=== PATIENT | male | born 1945 | race Caucasian/White ===

== ENCOUNTER 2017-03-20 13:21 | Emergency (ER) | payer OTHER ==
[~2017-03-20] VITALS: Ht 175.3 cm; Wt 108.9 kg
[~2017-03-20 13:21] MED LIST: ALDACTONE25 MG; BENAZEPRIL HCL/1 TAB; COLACE100 MG; HUMI SQ; LANTUS SOLOS100 U/M1 SQ; LANTUS100 U/ML; LASIX20 MG; METFORMIN500 M1; PRE15; SERTRALINE25 M1
[2017-03-20 13:26] VITALS: BP 100/62
== END 2017-03-20 14:35 | disposition home or self-care (01) ==
LOC: ED 13:21
DX: L03.211 Cellulitis of face (principal); L02.01 Cutaneous abscess of face; I10 Essential (primary) hypertension; E11.9 Type 2 diabetes mellitus without complications; Z88.5 Allergy status to narcotic agent

== ENCOUNTER 2018-07-08 17:47 | Emergency (ER) | payer OTHER ==
[~2018-07-08] VITALS: Ht 175.3 cm; Wt 108.9 kg
[2018-07-08 18:03] VITALS: Ht 175.3 cm; Wt 108.9 kg
[2018-07-08 22:29] VITALS: BP 132/74
== END 2018-07-08 22:29 | disposition home or self-care (01) ==
LOC: ED 17:47
DX: M25.061 Hemarthrosis, right knee (principal); I10 Essential (primary) hypertension; E11.9 Type 2 diabetes mellitus without complications; E78.00 Pure hypercholesterolemia, unspecified; Z98.890 Other specified postprocedural states; Z88.6 Allergy status to analgesic agent; W22.8XXA Striking against or struck by other objects, initial encounter; Y93.89 Activity, other specified; Y92.89 Other specified places as the place of occurrence of the external cause; Y99.8 Other external cause status
CPT/HCPCS: J1885; Q0092

== ENCOUNTER 2018-07-10 18:52 | Emergency (ER) | payer OTHER ==
[~2018-07-10] VITALS: Ht 175.3 cm; Wt 111.1 kg
[2018-07-10 19:03] VITALS: Ht 175.3 cm; Wt 111.1 kg
[2018-07-10 22:46] VITALS: BP 126/75
== END 2018-07-10 22:46 | disposition home or self-care (01) ==
LOC: ED 18:52
DX: S80.01XA Contusion of right knee, initial encounter (principal); K21.9 Gastro-esophageal reflux disease without esophagitis; I10 Essential (primary) hypertension; E78.00 Pure hypercholesterolemia, unspecified; Z88.5 Allergy status to narcotic agent; Z98.890 Other specified postprocedural states; W18.39XA Other fall on same level, initial encounter; Y93.89 Activity, other specified; Y92.89 Other specified places as the place of occurrence of the external cause; Y99.8 Other external cause status
CPT/HCPCS: J1885; Q0092

== ENCOUNTER 2018-07-13 07:18 | Inpatient (IN) | payer OTHER ==
[~2018-07-13] VITALS: Ht 175.3 cm; Wt 132.7 kg
[2018-07-13 08:06] LABS: PLATELET COUNT 85 x10^3mcL (130-400); RED CELL DISTRIBUTION WIDTH 15.2 % (11.5-14.5)
[2018-07-13] MEDS ORDERED: SERTRALINE50 M1 PO (08:10)
[2018-07-13] MEDS ORDERED: LEVEMIR100 U/M1 SC (08:11)
[2018-07-13] MEDS ORDERED: NOVOLOG100 U/ML SC (08:11)
[2018-07-13] MEDS ORDERED: GOOD SENSE OMEP20 MG PO (08:13)
[2018-07-13] MEDS ORDERED: [UNRECOGNIZED DRUG - OTHER] PO (08:13)
[2018-07-13] MEDS ORDERED: ALDACTONE25 MG PO (08:13)
[2018-07-13] MEDS ORDERED: LACTULOSE10 GM/152 PO (08:14)
[2018-07-13] MEDS ORDERED: TRAZODONE50 M1 (08:14)
[2018-07-13] MEDS ORDERED: DETROL LA4 MG PO (08:14)
[2018-07-13] MEDS ORDERED: TRAZODONE50 M1 PO (08:14)
[2018-07-13 08:19] LABS: CALCIUM 8.2 mg/dL (8.5-10.1); CARBON DIOXIDE 17.1 mmol/L (21-32); CHLORIDE SERUM 97 mmol/L (98-107); CREATININE SERUM 3.3 mg/dL (0.7-1.3); GLUCOSE SERUM 88 mg/dL (74-106); POTASSIUM SERUM 3.9 mmol/L (3.5-5.1); SODIUM SERUM 131 mmol/L (136-145)
[2018-07-13 08:29] LABS: ALKALINE PHOSPHATASE 199 U/L (46-116); ALT/SGPT 39 U/L (16-63); AST/SGOT 44 U/L (15-37); TOTAL PROTEIN, SERUM 6.4 g/dL (6.4-8.2)
[2018-07-13 08:31] LABS: CK-MB 1.5 ng/mL (0-3.6)
[2018-07-13 08:32] LABS: FREE T4 1.17 ng/dL (0.76-1.46); T4(THYROXINE) 5.6 ug/dL (4.7-13.3)
[2018-07-13 08:59] LABS: ERYTHROCYTE SED RATE 94 mm/hr (0-20)
[2018-07-13 09:06] LABS: C REACTIVE PROTEIN 37.3 mg/dL (<=0.9)
[2018-07-13 09:11] LABS: T3 TOTAL 0.31 ng/mL
[2018-07-13 09:21] LABS: BAND NEUTROPHIL 15 % (0-10); BASOPHIL 0 % (0-2); MONOCYTE 9 % (0-7); PLATELET MORPHOLOGY GIANT PLATELET SEEN; SEGMENTED NEUTROPHILS 68 % (37-75); rbc morphology (normal/abnorm) ABNORMAL (NORMAL)
[2018-07-13 09:37] LABS: UA SPECIFIC GRAVITY 1.025 (1.005-1.035); microscopic required? YES; urine erythrocyte 3+ (NEGATIVE)
[2018-07-13 11:03] VITALS: BP 101/70
[2018-07-13 16:30] VITALS: BP 87/49
[2018-07-13 19:30] VITALS: BP 126/76
[2018-07-13 23:50] VITALS: BP 96/56
[2018-07-14] VITALS (11 sets, daily range): BP systolic 79–131; BP diastolic 38–77
[2018-07-14 05:27] LABS: PLATELET COUNT 100 x10^3mcL (130-400); RED CELL DISTRIBUTION WIDTH 15.3 % (11.5-14.5)
[2018-07-14 05:41] LABS: BAND NEUTROPHIL 10 % (0-10); METAMYELOCTE 2 % (0-2); MONOCYTE 2 % (0-7); SEGMENTED NEUTROPHILS 84 % (37-75)
[2018-07-14 05:43] LABS: rbc morphology (normal/abnorm) ABNORMAL (NORMAL)
[2018-07-14 05:44] LABS: PLATELET MORPHOLOGY PLATELETS DECREASED; acanthocyte (spur cell) 1+
[2018-07-14 05:45] LABS: CALCIUM 7.9 mg/dL (8.5-10.1); CARBON DIOXIDE 15.7 mmol/L (21-32); CHLORIDE SERUM 98 mmol/L (98-107); GLUCOSE SERUM 193 mg/dL (74-106); MAGNESIUM 1.6 mg/dL (1.8-2.4); POTASSIUM SERUM 4.6 mmol/L (3.5-5.1); SODIUM SERUM 130 mmol/L (136-145)
[2018-07-15] VITALS (16 sets, daily range): BP systolic 81–114; BP diastolic 44–65; Ht 175.3 cm; Wt 132.7 kg
[2018-07-15 05:23] LABS: CALCIUM 7.7 mg/dL (8.5-10.1); CARBON DIOXIDE 19.3 mmol/L (21-32); CHLORIDE SERUM 100 mmol/L (98-107); CREATININE SERUM 3.3 mg/dL (0.7-1.3); GLUCOSE SERUM 250 mg/dL (74-106); MAGNESIUM 2.4 mg/dL (1.8-2.4); POTASSIUM SERUM 4.2 mmol/L (3.5-5.1); SODIUM SERUM 133 mmol/L (136-145)
[2018-07-15 05:24] LABS: PLATELET COUNT 87 x10^3mcL (130-400); RED CELL DISTRIBUTION WIDTH 16.2 % (11.5-14.5)
[2018-07-15 05:25] LABS: BAND NEUTROPHIL 12 % (0-10); METAMYELOCTE 1 % (0-2); MONOCYTE 3 % (0-7); SEGMENTED NEUTROPHILS 82 % (37-75); rbc morphology (normal/abnorm) ABNORMAL (NORMAL)
[2018-07-15 05:26] LABS: PLATELET MORPHOLOGY PLATELETS DECREASED; acanthocyte (spur cell) 1+
[2018-07-16] VITALS (18 sets, daily range): BP systolic 91–145; BP diastolic 50–84
[2018-07-16 05:31] LABS: PLATELET COUNT 80 x10^3mcL (130-400); RED CELL DISTRIBUTION WIDTH 16.3 % (11.5-14.5)
[2018-07-16 05:54] LABS: BAND NEUTROPHIL 6 % (0-10); METAMYELOCTE 1 % (0-2); MONOCYTE 3 % (0-7); SEGMENTED NEUTROPHILS 86 % (37-75)
[2018-07-16 05:55] LABS: acanthocyte (spur cell) 1+; rbc morphology (normal/abnorm) ABNORMAL (NORMAL)
[2018-07-16 05:56] LABS: PLATELET MORPHOLOGY PLATELETS DECREASED
[2018-07-16 06:06] LABS: CALCIUM 7.4 mg/dL (8.5-10.1); CARBON DIOXIDE 20.1 mmol/L (21-32); CHLORIDE SERUM 97 mmol/L (98-107); GLUCOSE SERUM 358 mg/dL (74-106); POTASSIUM SERUM 4.4 mmol/L (3.5-5.1); SODIUM SERUM 129 mmol/L (136-145)
[2018-07-16 06:10] LABS: CREATININE SERUM 4.3 mg/dL (0.7-1.3)
[2018-07-17] VITALS (18 sets, daily range): BP systolic 90–118; BP diastolic 46–68
[2018-07-17 05:31] LABS: PLATELET COUNT 67 x10^3mcL (130-400); RED CELL DISTRIBUTION WIDTH 16.3 % (11.5-14.5)
[2018-07-17 05:32] LABS: BAND NEUTROPHIL 5 % (0-10); METAMYELOCTE 1 % (0-2); MONOCYTE 4 % (0-7); SEGMENTED NEUTROPHILS 88 % (37-75); rbc morphology (normal/abnorm) ABNORMAL (NORMAL)
[2018-07-17 05:33] LABS: PLATELET MORPHOLOGY PLATELETS DECREASED; acanthocyte (spur cell) 1+
[2018-07-17 05:43] LABS: CARBON DIOXIDE 20.9 mmol/L (21-32); CHLORIDE SERUM 98 mmol/L (98-107); CREATININE SERUM 3.9 mg/dL (0.7-1.3); GLUCOSE SERUM 225 mg/dL (74-106); POTASSIUM SERUM 3.6 mmol/L (3.5-5.1); SODIUM SERUM 132 mmol/L (136-145)
[2018-07-18] VITALS (18 sets, daily range): BP systolic 77–163; BP diastolic 42–104
[2018-07-18 06:01] LABS: BASOPHIL % 0.1 % (0-2)
[2018-07-18 06:06] LABS: PLATELET COUNT 70 x10^3mcL (130-400); RED CELL DISTRIBUTION WIDTH 16.5 % (11.5-14.5)
[2018-07-18 06:16] LABS: CALCIUM 7.8 mg/dL (8.5-10.1); CARBON DIOXIDE 20.1 mmol/L (21-32); CHLORIDE SERUM 95 mmol/L (98-107); GLUCOSE SERUM 236 mg/dL (74-106); MAGNESIUM 2.3 mg/dL (1.8-2.4); POTASSIUM SERUM 4.3 mmol/L (3.5-5.1); SODIUM SERUM 129 mmol/L (136-145)
[2018-07-18 06:18] LABS: CREATININE SERUM 5.1 mg/dL (0.7-1.3)
[2018-07-19] VITALS (12 sets, daily range): BP systolic 74–127; BP diastolic 46–65
[2018-07-19 05:24] LABS: CALCIUM 7.7 mg/dL (8.5-10.1); CARBON DIOXIDE 19.5 mmol/L (21-32); CHLORIDE SERUM 97 mmol/L (98-107); GLUCOSE SERUM 256 mg/dL (74-106); MAGNESIUM 2.3 mg/dL (1.8-2.4); PHOSPHOROUS 4.9 mg/dL (2.5-4.9); POTASSIUM SERUM 4.7 mmol/L (3.5-5.1); SODIUM SERUM 131 mmol/L (136-145)
[2018-07-19 05:29] LABS: CREATININE SERUM 4.7 mg/dL (0.7-1.3)
[2018-07-19 05:31] LABS: BASOPHIL % 0 % (0-2); RED CELL DISTRIBUTION WIDTH 16.1 % (11.5-14.5)
[2018-07-19 05:32] LABS: PLATELET COUNT 72 x10^3mcL (130-400)
== END 2018-07-19 19:27 | disposition expired | DRG 870 ==
LOC: ED 07:18 → IC 09:37
PROVIDERS: Family Medicine; Internal Medicine; Specialist; ADMIT Internal Medicine
PROC: 05HM33Z Insertion of Infusion Device into Right Internal Jugular Vein, Percutaneous Approach (ICD-10-PCS; principal; 2018-07-13)
PROC: B543ZZA Ultrasonography of Right Jugular Veins, Guidance (ICD-10-PCS; 2018-07-13)
PROC: 5A1955Z Respiratory Ventilation, Greater than 96 Consecutive Hours (ICD-10-PCS; 2018-07-14)
PROC: 0BH17EZ Insertion of Endotracheal Airway into Trachea, Via Natural or Artificial Opening (ICD-10-PCS; 2018-07-14)
PROC: 05HM33Z Insertion of Infusion Device into Right Internal Jugular Vein, Percutaneous Approach (ICD-10-PCS; 2018-07-16)
PROC: B543ZZA Ultrasonography of Right Jugular Veins, Guidance (ICD-10-PCS; 2018-07-16)
DX: A41.02 Sepsis due to Methicillin resistant Staphylococcus aureus (principal); G82.50 Quadriplegia, unspecified; R65.21 Severe sepsis with septic shock; J96.01 Acute respiratory failure with hypoxia; K76.7 Hepatorenal syndrome; N17.0 Acute kidney failure with tubular necrosis; G93.41 Metabolic encephalopathy; N39.0 Urinary tract infection, site not specified; E44.0 Moderate protein-calorie malnutrition; K70.30 Alcoholic cirrhosis of liver without ascites; N31.9 Neuromuscular dysfunction of bladder, unspecified; E11.21 Type 2 diabetes mellitus with diabetic nephropathy; B96.1 Klebsiella pneumoniae [K. pneumoniae] as the cause of diseases classified elsewhere; F41.8 Other specified anxiety disorders; E83.51 Hypocalcemia; E78.00 Pure hypercholesterolemia, unspecified; I10 Essential (primary) hypertension; Z51.5 Encounter for palliative care; Z79.4 Long term (current) use of insulin; Z68.35 Body mass index [BMI] 35.0-35.9, adult; Z87.891 Personal history of nicotine dependence; Z79.84 Long term (current) use of oral hypoglycemic drugs; Z85.59 Personal history of malignant neoplasm of other urinary tract organ
CPT/HCPCS: 36556; 36600; 76770; 82962; 84439; 87804; 90658; 90732; A4628; C1758; C9113; J0282; J0692; J0696; J1642; J1644; J1650; J1815; J1940; J1956; J2060; J2185; J2250; J2270; J2354; J2370; J2543; J2997; J3010; J3370; J3475; J3490; J7030; J7040; J7042; J7050; J7620; P9047; Q0092